=== PATIENT | male | born 1990 | race Caucasian/White ===

== ENCOUNTER 2020-02-09 20:24 | Emergency (ER) | payer SELFPAY ==
[2020-02-09 20:31] VITALS: BP 136/88; PULSE 78; RESP 14; TEMP 36.7; O2SAT 98; BMI 29.5
[2020-02-09] MEDS: FLUORESCEIN 1 MG STRIP EYE-RIGHT (20:50)
[2020-02-09] MEDS: PROPARACAINE 0.5% OPHTH SOL 1 DROPS EYE-RIGHT (20:51)
--- NOTE | 2020-02-09 21:04 | ED.EYEPROB ---
HPI - Eye Problem General Chief complaint: Eye Problems Stated complaint: SOMETHING IN RIGHT EYE Time Seen by Provider: 02/09/20 20:51 Source: patient Mode of arrival: Ambulatory Limitations: no limitations History of Present Illness HPI Narrative: The patient was sawing wood at home about noon. Would or dust, something, went into his right eye. He has ongoing irritation to the right lateral eye. He has no visual changes. He does have watery discharge. He has no obvious visual foreign body. There is no left eye injury. He has decreased vision in his left eye, he says he tends to protect his right eye. He was not wearing safety glasses. Related Data Allergies Allergy/AdvReac Type Severity Reaction Status Date / Time No Known Drug Allergies Allergy Verified 02/09/20 20:46 Review of Systems Constitutional Constitutional: Denies chills and Denies fever(s) Comments: No recent illness. Eyes Eyes: Reports as per HPI ENT Comments: No other ENT complaints. Patient History Medical History Vision loss, left eye (Acute) Surgical History No significant past surgical history (Acute) Social History Smoking Status: Never smoker Smoking Status: Never smoker alcohol intake frequency: 0-2 drinks per day Substance Use Type: does not use Exam Initial Vital Signs Initial Vital Signs: Vital Signs Temperature 98.0 F 02/09/20 20:31 Pulse Rate 78 02/09/20 20:31 Respiratory Rate 14 02/09/20 20:31 Blood Pressure 136/88 02/09/20 20:31 Pulse Oximetry 98 02/09/20 20:31 Const General: cooperative and well developed Nutritional Appearance: well nourished [facility] Head: normal to inspection, normocephalic and atraumatic Eyes General: appearance normal, both eyes and all related structures Periorbital: periorbital findings normal Pupils: PERRL Other: The right eyelid is inverted, no foreign bodies noted. Fluorescein exam was done, there is an abrasion lateral to the pupil, and 12:00 p.m. above the pupil. There is no penetrating injury. Course Course Course Narrative: The eye was irrigated with normal saline by his nurse. Gentamicin ophthalmological drops were initiated. He will be discharged on the same. Orders Ordered: Discontinued Medications Fluorescein Sodium (Ful-Lynda) 1 mg EYE-RIGHT NOW ONE Stop: 02/09/20 20:46 Last Admin: 02/09/20 20:50 Dose: 1 mg Documented by: RONNI Gentamicin Sulfate (Garamycin 0.3% Ophth Prepack) 1 bottle MISC SEEINSTR ONE Stop: 02/09/20 21:06 Last Admin: 02/09/20 21:23 Dose: 1 bottle Documented by: RONNI Proparacaine HCl (Parcaine 0.5% Ophth Rina) 1 drops EYE-RIGHT NOW ONE Stop: 02/09/20 20:46 Last Admin: 02/09/20 20:51 Dose: 1 drops Documented by: RONNI Vital Signs Vital signs: Vital Signs - 8 hr 02/09/20 20:31 Temperature 98.0 F Pulse Rate 78 Respiratory Rate 14 Blood Pressure 136/88 Pulse Oximetry 98 Discharge Plan Departure Patient Disposition: Home Clinical Impression: Abrasion of cornea, right Qualifiers: Encounter type: initial encounter Qualified Code(s): S05.01XA - Injury of conjunctiva and corneal abrasion without foreign body, right eye, initial encounter Instructions: Corneal Abrasion Activity Restrictions/Additional Instructions: Tylenol 2 tabs every 4 hours as needed for pain. Apply cold compresses over the right eye frequently. Gentamicin, apply 1 drop to the right eye every 4 hours while awake for 5 days. We will give this medication in the ER. This is an antibiotic for your eye. If not improved within 48 hours, contact a local environmental education specialist. Return here as necessary.
[2020-02-09] MEDS: GENTAMICIN 0.3% OPHTH PREPACK 1 BOTTLE MISC (21:23)
[2020-02-09 21:34] VITALS: BP 133/83; PULSE 85; RESP 12; O2SAT 99
== END 2020-02-09 21:35 | disposition home or self-care (01) ==
LOC: ED 21:20
PROVIDERS: Emergency Provider Emergency Medicine
DX: S05.01XA Injury of conjunctiva and corneal abrasion without foreign body, right eye, initial encounter (principal); X58.XXXA Exposure to other specified factors, initial encounter
CPT/HCPCS: 99282; 99284